=== PATIENT | male | born 1980 | race Caucasian/White ===

== ENCOUNTER 2019-07-07 10:30 | Emergency (ER) | payer OTHER ==
[~2019-07-07] VITALS: Ht 167.6 cm; Wt 72.6 kg
[2019-07-07 10:41] VITALS: BP 121/79
[2019-07-07] MEDS ORDERED: OMEPRAZOLE 20 M20 M1 PO (10:43)
[2019-07-07] MEDS ORDERED: AMITRIPTYLINE H10 M1 PO (10:44)
[2019-07-07] MEDS ORDERED: KEFLEX500 M1 PO (11:01)
[2019-07-07] MEDS ORDERED: TYLENOL WITH CO1 TA1 PO (11:01)
[2019-07-07] MEDS ORDERED: BACTRIM DS TAB1 EACH PO (11:01)
== END 2019-07-07 11:14 | disposition home or self-care (01) ==
LOC: M.ERS 10:30
DX: S81.011A Laceration without foreign body, right knee, initial encounter (principal); K21.9 Gastro-esophageal reflux disease without esophagitis; Z88.5 Allergy status to narcotic agent; W26.8XXA Contact with other sharp object(s), not elsewhere classified, initial encounter; Y93.89 Activity, other specified; Y92.89 Other specified places as the place of occurrence of the external cause; Y99.8 Other external cause status

== ENCOUNTER 2020-03-24 15:50 | Inpatient (IN) | payer OTHER ==
[~2020-03-24] VITALS: Ht 167.6 cm; Wt 65.0 kg
[~2020-03-24 15:50] MED LIST: AMITRIPTYLINE H10 M1 PO; BACTRIM DS TAB1 EACH PO; KEFLEX500 M1 PO; OMEPRAZOLE 20 M20 M1 PO; TYLENOL WITH CO1 TA1 PO
[2020-03-24 15:55] VITALS: BP 138/93
[2020-03-24] MEDS ORDERED: PRINIVIL20 M1 PO (15:57)
[2020-03-24 16:14] LABS: ABSOLUTE EOSINOPHILS 0.1 thou/uL (0.0-0.7); ABSOLUTE LYMPHOCYTES 1.5 thou/uL (0.8-5.3); ABSOLUTE MONOCYTES 0.6 thou/uL (0.0-1.2); ABSOLUTE NEUTROPHILS 4.5 thou/uL (1.6-8.1); BASOPHILS 0.5 %; EOSINOPHILS 1.4 %; HEMATOCRIT 49.2 % (42.0-52.0); HEMOGLOBIN 17.4 gm/dL (14.0-18.0); LYMPHOCYTES 22.4 %; MCHC 35.4 g/dL (28.0-37.0); MCV 104.8 fL (80.0-100.0); MPV 8.7 fl. (7.2-11.1); NUCLEATED RBCS 0 /100WBC; PLATELET COUNT* 227 thou/uL (150-400); POLYS 66.7 %; RDW-CV 13.5 % (10.5-14.5); WBC 6.8 thou/uL (4.0-11.0)
[2020-03-24 16:23] LABS: CREATININE 1.9 mg/dL (0.6-1.3); POTASSIUM 3.6 mmol/L (3.5-5.1)
[2020-03-24 16:27] LABS: ALBUMIN 4.3 g/dL (3.4-5.0); TOTAL PROTEIN 8.4 g/dL (6.4-8.2)
[2020-03-24 17:22] LABS: URINE BILIRUBIN NEGATIVE (Negative); URINE BLOOD NEGATIVE (Negative); URINE CLARITY CLEAR; URINE COLOR YELLOW; URINE GLUCOSE-RANDOM NEGATIVE (Negative); URINE KETONES 1+ (Negative); URINE LEUKOCYTES-REFLEX NEGATIVE (Negative); URINE NITRITE-REFLEX NEGATIVE (Negative); URINE PROTEIN NEGATIVE (Negative); URINE UROBILINOGEN 0.2 E.U./dl (0.2-1.0)
[2020-03-24 17:32] LABS: AMP/METHAMP Negative (Negative); BARBITURATES Negative (Negative); BENZODIAZEPINES Negative (Negative); COCAINE Negative (Negative); METHADONE Negative (Negative); OPIATES Negative (Negative); PCP Negative (Negative); THC Negative (Negative)
[2020-03-24] MEDS ORDERED: METOPROLOL SUCC50 MG PO (20:48)
[2020-03-24] MEDS ORDERED: XANAX 0.5 MG0.5 M1 PO (20:48)
[2020-03-24] MEDS ORDERED: LIPITOR 20 MG T20 M1 PO (20:48)
[2020-03-24 21:27] VITALS: BP 129/90
[2020-03-24 22:00] VITALS: BP 132/86
[2020-03-25 03:54] VITALS: BP 141/95
[2020-03-25 05:16] LABS: ALBUMIN 2.9 g/dL (3.4-5.0); CALCIUM 8.2 mg/dL (8.5-10.1); CREATININE 1.1 mg/dL (0.6-1.3); MAGNESIUM 1.2 mg/dL (1.8-2.4); PHOSPHORUS* 3.7 mg/dL (2.5-4.9); POTASSIUM 3.1 mmol/L (3.5-5.1); TOTAL BILIRUBIN 0.8 mg/dL (<0.1-1.0); TOTAL PROTEIN 5.8 g/dL (6.4-8.2)
--- NOTE | 2020-03-25 06:50 | NUR ---
RECEIVED REPORT FROM ED RN. PT TRANSFERRED TO 230. PT A&OX4. VSS. PROGRAMS MANAGER IN PLACE. PHYSICAL ASSESSMENT COMPLETED AND CHARTED. PT ON RA. PT FLORIAN SR/ST ON TELE. PT YESENIA. PT WITH EPISODES OF WATERY DIARRHEA. PLACED ON SPECIAL CONTACT PRECAUTION. STOOL SPECIMEN SENT TO LAB. JOSÉ MANUEL CHARTED. CALL LIGHT WITHIN REACH.
[2020-03-25 08:00] VITALS: BP 130/90
--- NOTE | 2020-03-25 09:22 | EKG ---
[place] [address] ELECTROCARDIOGRAM REPORT Name: BHARATH POND Room: [address] ADM IN [facility]#: [id number] Admission: 03/24/20 Attend Phys: Emir Florez Discharge: Date of : 78 Date of Service: 03/24/201921 Report #: [id number] THIS REPORT FOR: //name// [facility] ED Test Date: 2020-03-24 Test Time: 19:22:00 Pat Name: BHARATH BRITOMONS Department: Room: [facility] Gender: M Word Processing Specialist: TDS : 1980 Requested By: Dottie Wallace Order Number: [id number] MD: Gurmeet Cooper Measurements Intervals [place] Rate: 90 P: 72 [place]: 149 QRS: 62 QRSD: 83 T: 60 QT: 350 QTc: 429 Interpretive Statements Sinus rhythm Left ventricular hypertrophy No previous ECG available for comparison Electronically Signed On 03-25-2020 9:22:30 CDT by Gurmeet Cooper [email or web address] <ELECTRONICALLY SIGNED> By: Gurmeet Cooper MD, [facility] 03/25/20921 21 21 Gurmeet Cooper MD, [facility] /EPI
[2020-03-25 12:00] VITALS: BP 133/97
--- NOTE | 2020-03-25 13:30 | NUR ---
CM SPOKE TO THE PT TO DISCUSS DISCHARGE PLANNING, AND ALCOHOL ABUSE ANS TREATMENT OPTIONS AT D/C. PT A&O, INDEPENDENT WITH ADL'S, ACTIVE AND WORKS. PT INFORMS THAT HE DRINKS MOST EVERY NIGHT AND REALIZES NOW THAT HE MAY HAVE A PROBLEM. CM OFFERED THE PT INFO PACKET ABOUT ALCOHOL ABUSE, AND PROVIDED ADRESS AND CONTACT INFO FOR OUTPATIENT SUBSTANCE ABUSE TREATMENT. CM ALSO INFORMED THE PT THAT ALL SUBSTANCE ABUSE TREATMENT MUST BE INITIATED BY THE PT. PT ACCEPTS THE INFO, BUT DID NOT CONFIRM PLAN. CM WILL REMAIN AVAILABLE TO ASSIST AND FOLLOW NEEDED.
[2020-03-25 16:00] VITALS: BP 136/98
[2020-03-25 20:00] VITALS: BP 139/99
[2020-03-26] VITALS: BP 128/89
[2020-03-26 04:00] VITALS: BP 135/98
[2020-03-26 05:12] LABS: MAGNESIUM 1.3 mg/dL (1.8-2.4); PHOSPHORUS* 3.5 mg/dL (2.5-4.9); POTASSIUM 3.4 mmol/L (3.5-5.1)
[2020-03-26 08:00] VITALS: BP 135/100
--- NOTE | 2020-03-26 08:00 | NUR ---
ASSUMED CARE OF PATIENT THIS MORNING FROM NIGHT NURSE. PT IS DOING WELL WITH NO CO OF PAIN OR NAUSEA AT THIS TIME. HE WAS EDUCATED ON POC, FALL SAFETY, AND USING THE CALL LIGHT FOR SAFETY. WILL CONTINUE TO MONITOR.
[2020-03-26 12:00] VITALS: BP 157/109
[2020-03-26 16:00] VITALS: BP 155/111
--- NOTE | 2020-03-26 19:00 | NUR ---
RECEIVED REPORT FROM DAY RN AND ASSUMED CARE
[2020-03-26 20:00] VITALS: BP 161/104
[2020-03-27] VITALS: BP 146/102
[2020-03-27 03:59] VITALS: BP 166/111
--- NOTE | 2020-03-27 06:16 | NUR ---
SHIFT REPORT: PATIENT HAD A RESTFUL NIGHT. CONT'S ON IVF WITH MVI ORDERED WITHOUT ISSUES. NO C/O PAIN, NAUSEA, HEADACHE, SWEATS OR DIFFICULTY WITH EATING. HE CONT'S ON SCHEDULED ATIVAN WITH TAPERED DOSING SCHEDULE. HIS B/P HAS INCREASED OVER THE PAST 24 HRS WITH DIASTOLICS AVERAGING >100 EACH CHECK. PT HAS BEEN RECEIVING ONLY LISINOPRIL FOR QUITE SOME TIME AND PT STATES HIS B/P HAS BEEN RUNNING HIH FOR AWHILE. WILL CONTACT ATTNDING REGARDING THE B/P. K+ 3.4 AND REPLACED PER PROTOCOL WITH 40 MEQ PO AND MG+ 1.3 HAS BEEN STARTED ON MGOX 400MG QID. VSS
[2020-03-27 08:00] VITALS: BP 168/102
--- NOTE | 2020-03-27 08:00 | NUR ---
ASSUMED CARE OF PATIENT THIS MORNING FROM NIGHT NURSE. PT IS DOING WELL AND HAS NO CO OF PAIN AND WILL BE DISCHARGED TODAY WITH PO MEDICATIONS. WILL CONTINUE TO MONITOR.
[2020-03-27] MEDS ORDERED: CIPRO500 MG PO (09:16)
[2020-03-27] MEDS ORDERED: PRENATAL PO (09:16)
[2020-03-27] MEDS ORDERED: FLAGYL500 M1 PO (09:16)
[2020-03-27] MEDS ORDERED: VITAMIN B-1100 M1 PO (09:16)
--- NOTE | 2020-03-27 11:14 | CON ---
[address] [address] CONSULTATION Name: BHARATH POND Room: [address] IN .R.#: [id number] Admission: 03/24/20 Attend Phys: Anibal Cook Discharge: Date of : 78 Report #: [id number] THIS REPORT FOR: //name// cc: Letha Quijano MD, Tuongvan T. MD ~ THIS REPORT FOR: //name// CC: Letha Florez DATE OF SERVICE: 03/26/2020 REASON FOR CONSULT: Persistent diarrhea. HISTORY OF PRESENT ILLNESS: This is a 40-year-old male with history of intestinal surgery 20 years ago. The patient reports that he usually has 4 to 5 stools per day, which are soft. For the past 3 days, he has been having persistent diarrhea with having BMs every 14 to 15 minutes. His stool is watery. The patient denies any hematochezia or melena. There is mild abdominal discomfort. He believes that he had a colonoscopy 20 years ago before his intestinal surgery. The patient denies any upper GI symptoms and he denies nausea, vomiting, dyspepsia or GERD. PAST MEDICAL HISTORY: Significant for history of intestinal surgery, gastroesophageal reflux disease, history of superior mesenteric artery syndrome repair, hypertension, hypercholesterolemia, and anxiety. ALLERGIES: SIGNIFICANT TO MORPHINE. MEDICATIONS: OMEPRAZOLE, AMITRIPTYLINE, LISINOPRIL, ALPRAZOLAM, METOPROLOL, AND ATORVASTATIN. PHYSICAL EXAMINATION: VITAL SIGNS: Reveals normal vitals. LUNGS: Clear. CARDIOVASCULAR: Regular. ABDOMEN: Soft, mildly tender to palpation in the left lower quadrant. Bowel sounds are positive. NEUROLOGIC: The patient is alert and oriented x 3. LABORATORY DATA: Reveal sodium of 141, potassium 3.4, BUN is 6, creatinine 1.0, glucose 104, AST is 56, ALT 52, alkaline phosphatase 128. Magnesium is 1.3, total bilirubin is 0.8, albumin 2.9. WBC is 6.8 with hemoglobin of 17.4 [place] [address] CONSULTATION Name: BHARATH POND Room: [address] IN [facility]#: [id number] Admission: 03/24/20 Attend Phys: Anibal Cook Discharge: Date of : 78 Report #: [id number] platelet of 227. IMAGING: CT of abdomen and pelvis revealed moderate distention of proximal duodenum without any obstruction. There was also evidence of sigmoid diverticulosis with mild fat stranding in the distal sigmoid, which may be due to mild diverticulitis. ASSESSMENT AND PLAN: The patient with persistent diarrhea for the past few days who had been started on Cipro and Flagyl since hospitalization and seems to be responding to it. His stool is negative for C. diff. I will continue the antibiotics once he is discharged for another 10 days and perform a colonoscopy in 1 month. The patient is agreeable with plan. <ELECTRONICALLY SIGNED> By: Nadia Garrett MD 03/27/20 1114 [id number] Garrett MD /nt
[2020-03-27 11:20] VITALS: BP 168/102
--- NOTE | 2020-03-27 11:55 | NUR ---
PT WAS DISCHARGED HOME WITH A LIST OF HOME MEDICATIONS AND DISCHARGE INSTRUCTIONS. PT ALSO WAS GIVEN NEW DIET INSTRUCTIONS AND LEFT HOME WITH .
== END 2020-03-27 11:55 | disposition home or self-care (01) | DRG 371 ==
LOC: M.ERS 15:50 → M.TBA-ER 18:30 → M.2W 18:30
PROVIDERS: Family Medicine; Physician Assistant; ADMIT Internal Medicine; ATTEND Internal Medicine
DX: A04.9 Bacterial intestinal infection, unspecified (principal); N17.0 Acute kidney failure with tubular necrosis; E44.0 Moderate protein-calorie malnutrition; K57.32 Diverticulitis of large intestine without perforation or abscess without bleeding; Y90.9 Presence of alcohol in blood, level not specified; F17.210 Nicotine dependence, cigarettes, uncomplicated; I10 Essential (primary) hypertension; F10.20 Alcohol dependence, uncomplicated; E78.00 Pure hypercholesterolemia, unspecified; F41.9 Anxiety disorder, unspecified; K21.9 Gastro-esophageal reflux disease without esophagitis; K63.89 Other specified diseases of intestine; Z20.828 Contact with and (suspected) exposure to other viral communicable diseases; Z68.23 Body mass index [BMI] 23.0-23.9, adult; Z88.5 Allergy status to narcotic agent; Z79.899 Other long term (current) drug therapy